=== PATIENT | male | born 2000 | race Caucasian/White ===

== ENCOUNTER 2022-11-07 01:29 | Emergency (ER) | payer SELFPAY ==
[~2022-11-07] VITALS: Ht 177.8 cm; Wt 84.4 kg
[2022-11-07 01:31] VITALS: BP 112/69
--- NOTE | 2022-11-07 01:32 | NUR ---
PT BIB [facility] TAKEN TO CHAIR
--- NOTE | 2022-11-07 01:37 | NUR ---
Dr. Dunn examining patient.
[2022-11-07 02:00] VITALS: BP 112/69
--- NOTE | 2022-11-07 02:00 | NUR ---
Patient D/C to custody.
== END 2022-11-07 02:00 ==
LOC: MED 01:29
DX: V49.88XA Car occupant (driver) (passenger) injured in other specified transport accidents, initial encounter; Y93.89 Activity, other specified; Y92.89 Other specified places as the place of occurrence of the external cause; Y99.8 Other external cause status
CPT/HCPCS: 99283